=== PATIENT | female | born 1950 | race African-American/Black ===

== ENCOUNTER 2020-08-30 18:14 | Emergency (ER) | payer MEDICARE, OTHER ==
--- NOTE | 2020-08-30 18:29 | Emergency Department Report ---
ED Fall HPI - General Chief Complaint: Fall Stated Complaint: FALL Time Seen by Provider: 08/30/20 18:26 Source: patient Mode of arrival: Wheelchair - History of Present Illness Initial Comments: 69-year-old female with a past medical history of hypertension presents to the ER today with complaints of facial injury after an accidental fall just prior to arrival. Patient states that she slipped on a wet floor and fell forward and hit struck her face on tile. She denies any LOC. She reports bleeding from the top of her left eye as well as bruising and swelling. She states that she took some Advil prior to coming in. She complains of pain mainly around the left eye and her left forehead area otherwise she denies any headache, dizziness, neck pain, nausea, vomiting or any other symptoms. She states that she is not any anticoagulants or blood thinners. 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 denies: eye pain, eye discharge, vision change ENT: denies: ear pain, throat pain, dental pain, hearing loss, epistaxis, congestion Respiratory: denies: cough, orthopnea, shortness of breath, SOB with exertion, SOB at rest, wheezing Cardiovascular: denies: chest pain, palpitations, dyspnea on exertion, edema, syncope, paroxysmal nocturnal dyspnea Gastrointestinal: denies: abdominal pain, nausea, diarrhea, constipation, hematemesis, melena, hematochezia Genitourinary: denies: urgency, dysuria, frequency, hematuria, discharge, abnormal menses, dyspareunia Skin: other (laceration, bruising ) Neurological: denies: headache, weakness, confusion Psychiatric: denies: anxiety, depression, auditory hallucinations, visual hallucinations, homicidal thoughts, suicidal thoughts Hematological/Lymphatic: denies: easy bleeding, easy bruising, swollen glands ED Past Medical Hx - Social History Smoking Status: Never Smoker Substance Use Type: None ED Physical Exam - General Limitations: Language Barrier General appearance: alert, in no apparent distress - Head Head exam: Present: other (Tenderness noted to the bridge of the nose with some mild bruising mild swelling no deformity or septal hematoma noted. No bleeding from the nostrils or dried blood noted.) - Expanded Head Exam Expanded Head exam: Present: laceration (very superficial small lac (~0.8cm) noted left eyebrow area, wound edges well approximated and mild bleeding. ), hematoma (Periorbital left - mild to moderate). Absent: tenderness of temporal artery, CSF rhinorrhea, CSF otorrhea - Eye Eye exam: Present: PERRL, EOMI, periorbital swelling (Mild to moderate with associated mild to moderate periorbital bruising mainly to the upper lids around the left eye), periorbital tenderness (Around the left eye), other. Absent: scleral icterus, conjunctival injection, nystagmus Pupils: Present: normal accommodation - ENT ENT exam: Present: normal exam, normal orophraynx, TM's normal bilaterally, other (No malocclusion. No dental injury.) - Neck Neck exam: Present: normal inspection, full ROM. Absent: tenderness - Respiratory Respiratory exam: Present: normal lung sounds bilaterally. Absent: respiratory distress - Cardiovascular Cardiovascular Exam: Present: regular rate, normal rhythm, normal heart sounds - Neurological Exam Neurological exam: Present: alert, oriented X3, CN II-XII intact, normal gait - Psychiatric Psychiatric exam: Present: normal affect, normal mood ED Course Vital Signs 08/30/20 18:20 Temperature 98.2 F Pulse Rate 70 Respiratory 16 Rate Blood Pressure 218/86 O2 Sat by Pulse 100 Oximetry - Laceration /Wound Repair Left Face Wound Location: face (left eyebrow area) Wound's Depth, Shape: superficial (~0.8cm), linear Wound Explored: clean Wound Repaired With: Dermabond ED Medical Decision Making - Radiology Data Radiology results: report reviewed Patient: APARNA VO MR#: [id number] : 1950 Acct:[id number] Age/Sex: 69 / F ADM Date: 08/30/20 Loc: ED Attending Dr: Ordering Physician: GENEVIEVE TIAN Date of Service: 08/30/20 Procedure(s): CT cervical spine wo con Accession Number(s): [id number] cc: GENEVIEVE TIAN CT cervical spine wo con INDICATION / CLINICAL INFORMATION: 69 years Female; fall/slipped. TECHNIQUE: Axial CT images of the cervical spine were obtained. Sagittal and coronal r eformatted images were produced. All CT scans at this location are performed using CT dose reduction for ALARA by means of automated exposure control. COMPARISON: None available. FINDINGS: POST-SURGICAL CHANGES: None. ALIGNMENT: There is no significant spondylolisthesis of the cervical spine. VERTEBRAE: There appears be diffuse osteopenia. There is no clear CT evidence of acute fracture involving cervical spine. INTRAVERTEBRAL DISCS: Appears be mild disc bulge at C3-4 which effaces the ventral subarachnoid space. There is mild left foraminal narrowing. There is mild to moderate foraminal narrowing bilaterally at C4-5. Mild foraminal narrowing is also seen on the right at C5-6. PARASPINAL SOFT TISSUES: No prevertebral soft tissue fluid collections are identified. There is mild atherosclerotic calcification involving the carotid bifurcations bilaterally. ADDITIONAL FINDINGS: There is a right paratracheal lymph node measuring 0.6 cm in short axis dimension which is nonspecific. IMPRESSION: 1. There is no clear CT evidence of acute fracture involving cervical spine. Signer Name: Gregg Berumen MD Signed: 08/30/2020 7:43 PM Workstation Name: [id number] Transcribed By: MR Dictated By: Gregg Berumen MD Electronically Authenticated By: Gregg Berumen MD Signed Date/Time: 08/30/201942 DD/ 38 TD/TT: Patient: APARNA VO MR#: [id number] : 1950 Acct:[id number] Age/Sex: 69 / F ADM Date: 08/30/20 Loc: ED Attending Dr: Ordering Physician: GENEVIEVE TIAN Date of Service: 08/30/20 Procedure(s): CT facial bones wo con Accession Number(s): [id number] cc: GENEVIEVE TIAN CT MAXILLOFACIAL WITHOUT CONTRAST INDICATION / CLINICAL INFORMATION: fall/slipped fall/facial injury. TECHNIQUE: All CT scans at this location are performed using CT dose reduction for ALARA by means of automated exposure control. COMPARISON: None available. FINDINGS: FACIAL BONES: There is edema involving the visualized left foraminal and soft tissues at. However, there is no CT evidence of acute fracture of the facial bones. The orbital blackwell, sinuses and zyg omatic arches appear intact. PARANASAL SINUSES: There is mild mucosal thickening along the anterior and medial left maxillary sinus at. Otherwise, the paranasal sinuses are pneumatized. There is mild deviation of the nasal septum toward the left. ORBITS: The optic globes appear to demonstrate appropriate size and configuration. There is mild left preseptal edema. However, there is no clear CT evidence of significant post septal inflammatory changes. VISUALIZED INTRACRANIAL STRUCTURES: No significant abnormality. ADDITIONAL FINDINGS: None. IMPRESSION: 1. There is mild edema involving left for head and preseptal soft tissues. However, there is no clear CT evidence of acute fracture of the facial bones. Signer Name: Gregg Berumen MD Signed: 08/30/2020 7:39 PM Workstation Name: [id number] Transcribed By: MR Dictated By: Gregg Berumen MD Electronically Authenticated By: Gregg Berumen MD Signed Date/Time: 08/30/201938 DD/ 34 TD/TT: Patient: APARNA VO MR#: [id number] : 1950 Acct:[id number] Age/Sex: 69 / F ADM Date: 08/30/20 Loc: ED Attending Dr: Ordering Physician: GENEVIEVE TIAN Date of Service: 08/30/20 Procedure(s): CT head/brain wo con Accession Number(s): [id number] cc: GENEVIEVE TIAN CT head/brain wo con INDICATION / CLINICAL INFORMATION: 69 years Female; slipped and fall/head injury. TECHNIQUE: Routine CT head without contrast. All CT scans at this location are performed using CT dose reduction for ALARA by means of automated exposure control. COMPARISON: None. FINDINGS: BRAIN / INTRACRANIAL CONTENTS: There are foci of calcification within the basal ganglia bilaterally. There otherwise appears be mild cerebral white matter disease most consistent with microvascular angiopathy at. The ventricular system is within normal limits in size and configuration. There is no clear CT evidence of acute intracranial hemorrhage or significant mass effect. There is mild edema involving the left fourth digit soft tissues. ORBITS: No significant abnormality of visualized orbits. SINUSES / MASTOIDS: No significant abnormality in the visualized paranasal sinuses or mastoid air cells. CRANIOCERVICAL JUNCTION: No significant abnormality. ADDITIONAL FINDINGS: None. IMPRESSION: 1. There is mild edema involving the left foraminal and soft tissues. However, there is no clear CT evidence of acute intracranial hemorrhage. Signer Name: Gregg Berumen MD Signed: 08/30/2020 7:35 PM Workstation Name: [id number] Transcribed By: MR Dictated By: Gregg Berumen MD Electronically Authenticated By: Gregg Berumen MD Signed Date/Time: 08/30/201934 DD/ 31 TD/TT: - Medical Decision Making The patient presented with a complaint of a facial injury ground-level accidental fall today. Patient is resting comfortably and she is alert and in no distress. She normal mental status, has a GCS of 15, and is neurologically intact with normal gait in ED. CT head, neck and feet showed nothing acute. Her history, exam, diagnostic testing and current condition does not demonstrate signs of basilar skull fracture, clinically significant intracranial injury/facial trauma or significant cervical trauma requiring additional admission/transfer or emergent specialist consult at this time. Discussed results with patient. Discussed dx and tx plan with patient. Wound care also discussed with patient. The patient condition is stable and appropriate for discharge. The patient will pursue further outpatient evaluation with the primary care physician. Critical care attestation.: If time is entered above; I have spent that time in minutes in the direct care of this critically ill patient, excluding procedure time. ED Disposition Clinical Impression: Facial contusion, Laceration of face Disposition: DC-01 TO HOME OR SELFCARE Is pt being admited?: No Does the pt Need Aspirin: No Condition: Stable Instructions: Facial or Scalp Contusion, [id number], Sutures, Radha, or Adhesive Wound Closure, [id number] Additional Instructions: Do not with the wound for about 5 days. The glue will dissolve over time. Take Tylenol as needed for pain. You can apply ice over the eyes to help with swelling. Recommend close follow-up with your primary care doctor in the next 3 to 4 days. Return to the ER if your symptoms worsens or changes in any way. Referrals: PRIMARY CAREMD [Primary Care Provider] - 3-5 Days Time of Disposition: 20:53
[2020-08-30] MEDS ORDERED: TETANUS,DIPH,PERTUSS(ACELL) VACCINE 0.5 ML SYRINGE IM ONE (18:31)
--- NOTE | 2020-08-30 19:40 | Cat Scan Report ---
CT head/brain wo con INDICATION / CLINICAL INFORMATION: 69 years Female; slipped and fall/head injury. TECHNIQUE: Routine CT head without contrast. All CT scans at this location are performed using CT dos e reduction for ALARA by means of automated exposure control. COMPARISON: None. FINDINGS: BRAIN / INTRACRANIAL CONTENTS: There are foci of calcification within the basal ganglia bilaterally. There otherwise appears be mild cerebral white matter disease most consistent with microvascular reta opathy at. The ventricular system is within normal limits in size and configuration. There is no rosa maria r CT evidence of acute intracranial hemorrhage or significant mass effect. There is mild edema involv ing the left fourth digit soft tissues. ORBITS: No significant abnormality of visualized orbits. SINUSES / MASTOIDS: No significant abnormality in the visualized paranasal sinuses or mastoid air wesley ls. CRANIOCERVICAL JUNCTION: No significant abnormality. ADDITIONAL FINDINGS: None. IMPRESSION: 1. There is mild edema involving the left foraminal and soft tissues. However, there is no clear CT e vidence of acute intracranial hemorrhage. Signer Name: Gregg Berumen MD Signed: 08/30/2020 7:35 PM Workstation Name: [id number]
--- NOTE | 2020-08-30 19:44 | Cat Scan Report ---
CT MAXILLOFACIAL WITHOUT CONTRAST INDICATION / CLINICAL INFORMATION: fall/slipped fall/facial injury. TECHNIQUE: All CT scans at this location are performed using CT dose reduction for ALARA by means of automated e xposure control. COMPARISON: None available. FINDINGS: FACIAL BONES: There is edema involving the visualized left foraminal and soft tissues at. However, th ere is no CT evidence of acute fracture of the facial bones. The orbital blackwell, sinuses and zygomatic arches appear intact. PARANASAL SINUSES: There is mild mucosal thickening along the anterior and medial left maxillary sinu s at. Otherwise, the paranasal sinuses are pneumatized. There is mild deviation of the nasal septum t oward the left. ORBITS: The optic globes appear to demonstrate appropriate size and configuration. There is mild left preseptal edema. However, there is no clear CT evidence of significant post septal inflammatory rodriguez ges. VISUALIZED INTRACRANIAL STRUCTURES: No significant abnormality. ADDITIONAL FINDINGS: None. IMPRESSION: 1. There is mild edema involving left for head and preseptal soft tissues. However, there is no fior ar CT evidence of acute fracture of the facial bones. Signer Name: Gregg Berumen MD Signed: 08/30/2020 7:39 PM Workstation Name: [id number]
--- NOTE | 2020-08-30 19:48 | Cat Scan Report ---
CT cervical spine wo con INDICATION / CLINICAL INFORMATION: 69 years Female; fall/slipped. TECHNIQUE: Axial CT images of the cervical spine were obtained. Sagittal and coronal reformatted images were pr oduced. All CT scans at this location are performed using CT dose reduction for ALARA by means of aut omated exposure control. COMPARISON: None available. FINDINGS: POST-SURGICAL CHANGES: None. ALIGNMENT: There is no significant spondylolisthesis of the cervical spine. VERTEBRAE: There appears be diffuse osteopenia. There is no clear CT evidence of acute fracture invol ving cervical spine. INTRAVERTEBRAL DISCS: Appears be mild disc bulge at C3-4 which effaces the ventral subarachnoid space . There is mild left foraminal narrowing. There is mild to moderate foraminal narrowing bilaterally a t C4-5. Mild foraminal narrowing is also seen on the right at C5-6. PARASPINAL SOFT TISSUES: No prevertebral soft tissue fluid collections are identified. There is mild atherosclerotic calcification involving the carotid bifurcations bilaterally. ADDITIONAL FINDINGS: There is a right paratracheal lymph node measuring 0.6 cm in short axis dimensio n which is nonspecific. IMPRESSION: 1. There is no clear CT evidence of acute fracture involving cervical spine. Signer Name: Gregg Berumen MD Signed: 08/30/2020 7:43 PM Workstation Name: [id number]
[2020-08-30 21:12] VITALS: BP 197/73
== END 2020-08-30 21:05 | disposition home or self-care (01) ==
LOC: ED 18:14
DX: S01.81XA Laceration without foreign body of other part of head, initial encounter (principal); Z79.899 Other long term (current) drug therapy; W01.0XXA Fall on same level from slipping, tripping and stumbling without subsequent striking against object, initial encounter; Y93.89 Activity, other specified; Y92.89 Other specified places as the place of occurrence of the external cause; Y99.8 Other external cause status
CPT/HCPCS: 70450; 70486; 72125; 90471; 90715; 99282; 99283